=== PATIENT | male | born 1975 | race Two or more races ===

== ENCOUNTER 2020-09-02 06:22 | Emergency (ER) | payer OTHER ==
[~2020-09-02] VITALS: Ht 172.7 cm; Wt 87.5 kg
[2020-09-02] MEDS ORDERED: FORTAMET500 MG (06:28)
[2020-09-02] MEDS ORDERED: TOPROL XL25 M1 (06:28)
[2020-09-02] MEDS ORDERED: COZAAR100 MG (06:28)
[2020-09-02] MEDS ORDERED: KETO10TA2 PO (15:00)
[2020-09-02] MEDS ORDERED: COZAAR100 MG PO (15:00)
[2020-09-02] MEDS ORDERED: LEVSIN/SL0.125 MG SL (15:00)
[2020-09-02] MEDS ORDERED: PEPCID AC20 MG PO (15:00)
== END 2020-09-02 15:26 | disposition home or self-care (01) ==
LOC: ER 06:22
DX: K29.70 Gastritis, unspecified, without bleeding (principal); R10.13 Epigastric pain; R10.11 Right upper quadrant pain

== ENCOUNTER 2022-03-24 05:57 | Day surgery (SDC) | payer OTHER ==
[~2022-03-24] VITALS: Ht 172.7 cm; Wt 87.1 kg
[~2022-03-24 05:57] MED LIST: ANALPRAM HC 2.530 GM RECTAL; COZAAR100 MG; COZAAR100 MG PO; FERREX 150 FOR1 EAC1 PO; FORTAMET500 MG; KETO10TA2 PO; LEVSIN/SL0.125 MG SL; METFORMIN HCL750 MG PO; PEPCID AC20 MG PO; TOPROL XL25 M1
[2022-03-24] MEDS ORDERED: PERCOCET 5-3251 EACH PO (10:52)
[2022-03-24] MEDS ORDERED: DERMOPLAST PAIN78 GM TOP (10:52)
[2022-03-24] MEDS ORDERED: NEURONTIN300 MG PO (10:52)
== END 2022-03-24 17:30 | disposition home or self-care (01) ==
LOC: CIR.AMB 05:57
PROVIDERS: ATTEND Surgery
DX: K64.8 Other hemorrhoids (principal); K64.4 Residual hemorrhoidal skin tags; K62.5 Hemorrhage of anus and rectum; K62.3 Rectal prolapse; K59.09 Other constipation; I10 Essential (primary) hypertension; E11.9 Type 2 diabetes mellitus without complications; F41.1 Generalized anxiety disorder; Z20.822 Contact with and (suspected) exposure to COVID-19

== ENCOUNTER 2023-02-19 18:31 | Emergency (ER) | payer OTHER ==
[~2023-02-19] VITALS: Ht 172.7 cm; Wt 86.2 kg
[~2023-02-19 18:31] MED LIST changes: +DERMOPLAST PAIN78 GM TOP; +NEURONTIN300 MG PO; +PERCOCET 5-3251 EACH PO
[2023-02-19] MEDS ORDERED: GLUMETZA1000 MG PO (19:20)
[2023-02-19 22:37] LABS: URINE APPEARANCE Clear; URINE BILIRRUBIN Negative (NEGATIVE); URINE BLOOD Negative; URINE COLOR Yellow; URINE GLUCOSE Negative (NEGATIVE); URINE LEUKOCYTE Negative; URINE NITRATE Negative; URINE PROTEIN Negative (NEGATIVE); URINE UROBILINOGEN 0.2 E.U./dl
[2023-02-19 22:40] LABS: URINE BACTERIA 6.2 uL (0.0-1933)
[2023-02-19 22:43] LABS: URINE RBC 0.2 uL (0.0-20.8)
[2023-02-19 22:44] LABS: URINE EPITHELIAL CELLS 0.4 uL (0.0-38.8); URINE WBC 1.6 uL (0.0-23.2)
[2023-02-19 22:48] LABS: HEMATOCRIT 43.6 % (39.0-48.0); HEMOGLOBIN 15.7 g/dL (13-16.00); MEAN CELL VOLUME 88.5 fL (80.0-100.00); MEAN CORPUSCULAR HEMOGLOBIN 31.8 pg (27.00-32.0); PLATELET COUNT 250 K/uL (150-450); RED BLOOD COUNT 4.93 M/uL (4.00-6.00); RED CELL DISTRIBUTION WIDTH 13.1 % (11.5-14.5)
[2023-02-19 22:57] LABS: CALCIUM 8.4 mg/dL (8.5-10.1); CREATININE SERUM 0.76 mg/dL (0.70-1.30); GFR 109.47; POTASSIUM 3.98 mEq/L (3.5-5.1)
== END 2023-02-20 04:15 | disposition home or self-care (01) ==
LOC: ER 18:31
PROVIDERS: Emergency Medicine
DX: R07.89 Other chest pain (principal); I10 Essential (primary) hypertension

== ENCOUNTER 2024-05-10 16:34 | Emergency (ER) | payer OTHER ==
[~2024-05-10] VITALS: Ht 172.7 cm; Wt 83.9 kg
[~2024-05-10 16:34] MED LIST changes: +GLUMETZA1000 MG PO
[2024-05-10] MEDS ORDERED: MOUNJARO5 MG/0.5 M SQ (18:54)
[2024-05-10] MEDS ORDERED: VALSARTAN320 MG PO (18:54)
[2024-05-10] MEDS ORDERED: KETOROLAC TROMETHAMINE 60 MG VIAL IM ONE ×2 (23:45→23:56)
[2024-05-10] MEDS ORDERED: BACLOFEN10 MG PO (23:45)
[2024-05-10] MEDS ORDERED: DEXAMETHASONE SODIUM PHOSPHATE 4 MG/ML VIAL IM ONE (23:45)
[2024-05-10] MEDS ORDERED: IBU600 MG PO (23:45)
[2024-05-10] MEDS ORDERED: DEXAMETHASONE SODIUM PHOSPHATE 4 MG/ML VIAL ONE (23:56)
== END 2024-05-11 00:09 | disposition home or self-care (01) ==
LOC: ER 16:36
DX: M94.0 Chondrocostal junction syndrome [Tietze] (principal); G44.209 Tension-type headache, unspecified, not intractable; I10 Essential (primary) hypertension; E11.9 Type 2 diabetes mellitus without complications; Z79.84 Long term (current) use of oral hypoglycemic drugs; Z88.2 Allergy status to sulfonamides